=== PATIENT | female | born 1970 | race Caucasian/White ===

== ENCOUNTER 2017-02-21 12:35 | Emergency (ER) | payer BC ==
[~2017-02-21] VITALS: Ht 157.5 cm; Wt 57.5 kg
[2017-02-21 12:53] VITALS: TEMP 36.7; Ht 157.5 cm; Wt 57.5 kg
[2017-02-21] MEDS ORDERED: SODIUM CHLORIDE 0.9% 1000ML 1,000 ML IV STA ×2 (13:25→14:05)
[2017-02-21] MEDS ORDERED: METOCLOPRAMIDE HCL INJ 5 MG/ML 2 ML VIAL IV STA (13:25)
[2017-02-21] MEDS ORDERED: DiphenhydrAMINE HCL 50 MG/ML VIAL IV STA (13:25)
--- NOTE | 2017-02-21 13:32 | EMERGENCY ROOM VISIT NOTE ---
History Report prepared by Tiffanie: Bella Simms Under the Supervision of: Dr. Virgil Kim M.D. First contact with patient: 13:21 Chief Complaint: VERTIGO Stated Complaint: VERTIGO Nursing Triage Summary: pt reports hx of vertigo , has had vertigo about 1 week now but has become worse this AM upon awakening. Patient stated "it gets a little worse when I lay down. " History of Present Illness The patient is a 46 year old female who presents to the Emergency Room with complaints of worsening vertigo for the past 1 week. She experienced an episode this past Wednesday, 5 days [employer], but eventually the symptoms resolved. She admits to a history of vertigo and states this morning upon waking, her symptoms returned and worsened. Laying down and movement make her feel worse, but sitting still provides relief. The patient states "this has been the worse episode I've ever had" and notes she is currently unable to walk because of the dizziness. She tried taking an allergy pill on the recommendation of a friend, but it provided no relief. She notes she has experienced ear issues in the past and this past Wednesday, experienced tinnitus. She denies any recent headache. She has experienced rhinorrhea and also complains of nausea. She has not vomited or experienced any fevers or cough. The patient takes no daily medications and states she has no chronic medical problems. She also denies any neck pain or back pain. Source of History: patient Onset: 1 week [employer] Position: other (global) Timing: worsening Modifying Factors (Worsening): movement, other (Laying down) Modifying Factors (Relieving): rest (sitting still), other (allergy pill) Associated Symptoms: + nausea, No fevers, No headache, No cough, No neck pain, No vomiting, No back pain Review of Systems See HPI for pertinent positives and negatives. A total of ten systems were reviewed and were otherwise negative. Past Medical & Surgical Medical Problems: (1) Vertigo Social History Smoking Status: Never Smoker Alcohol Use: occasionally Drug Use: none Marital Status: Housing Status: lives with family Occupation Status: employed Current/Historical Medications Scheduled Ondasetron Odt (Zofran Odt), 4 MG SL Q6H Scheduled PRN Meclizine Hcl (Meclizine Hcl), 25 MG PO TID PRN for Dizziness Allergies Coded Allergies: No Known Allergies (Unverified , 02/21/17) Physical Exam Vital Signs Date Time Temp Pulse Resp B/P (MAP) Pulse Ox O2 Delivery O2 Flow Rate FiO2 02/21/17 17:55 79 18 145/77 100 02/21/17 15:02 77 16 140/83 98 Room Air 02/21/17 12:53 36.7 77 18 167/85 99 Room Air Physical Exam GENERAL: Awake, alert, appears uncomfortable, in no acute distress. Dry mucous membranes HENT: Normocephalic, atraumatic. Oropharynx unremarkable. EYES: Normal conjunctiva. Sclera non-icteric. Unilateral nystagmus to left, worse with head movements NECK: Supple. No nuchal rigidity. FROM. No JVD. RESPIRATORY: Clear to auscultation. CARDIAC: Regular rate, normal rhythm. Extremities warm and well perfused. Pulses equal. ABDOMEN: Soft, non-distended. No tenderness to palpation. No rebound or guarding. No masses. RECTAL: Deferred. MUSCULOSKELETAL: Chest examination reveals no tenderness. The back is symmetrical on inspection without obvious abnormality. There is no CVA tenderness to palpation. No joint edema. LOWER EXTREMITIES: Calves are equal size bilaterally and non-tender. No edema. No discoloration. NEURO: Neuro grossly intact, normal cerebellar function, finger to nose, alternating palms, heel to lewis. Normal sensorium. No sensory or motor deficits noted. SKIN: No rash or jaundice noted. Medical Decision & Procedures Laboratory Results 02/21/17 13:40 Red Blood Count 4.89, Mean Corpuscular Volume 87.3, Mean Corpuscular Hemoglobin 29.0, Mean Corpuscular Hemoglobin Concent 33.3, Mean Platelet Volume 9.7, Neutrophils (%) (Auto) 66.0, Lymphocytes (%) (Auto) 25.2, Monocytes (%) (Auto) 6.2, Eosinophils (%) (Auto) 1.9, Basophils (%) (Auto) 0.6, Neutrophils # (Auto) 5.28, Lymphocytes # (Auto) 2.02, Monocytes # (Auto) 0.50, Eosinophils # (Auto) 0.15, Basophils # (Auto) 0.05 02/21/17 13:40 Test 02/21/17 13:40 White Blood Count 8.01 K/uL (4.8-10.8) Red Blood Count 4.89 M/uL (4.2-5.4) Hemoglobin 14.2 g/dL (12.0-16.0) Hematocrit 42.7 % (37-47) Mean Corpuscular Volume 87.3 fL (80-100) Mean Corpuscular Hemoglobin 29.0 pg (25-34) Mean Corpuscular Hemoglobin Concent 33.3 g/dl (32-36) Platelet Count 282 K/uL (130-400) Mean Platelet Volume 9.7 fL (7.4-10.4) Neutrophils (%) (Auto) 66.0 % Lymphocytes (%) (Auto) 25.2 % Monocytes (%) (Auto) 6.2 % Eosinophils (%) (Auto) 1.9 % Basophils (%) (Auto) 0.6 % Neutrophils # (Auto) 5.28 K/uL (1.4-6.5) Lymphocytes # (Auto) 2.02 K/uL (1.2-3.4) Monocytes # (Auto) 0.50 K/uL (0.11-0.59) Eosinophils # (Auto) 0.15 K/uL (0-0.5) Basophils # (Auto) 0.05 K/uL (0-0.2) RDW Standard Deviation 42.9 fL (36.4-46.3) RDW Coefficient of Variation 13.5 % (11.5-14.5) Immature Granulocyte % (Auto) 0.1 % Immature Granulocyte # (Auto) 0.01 K/uL (0.00-0.02) Anion Gap 6.0 mmol/L (3-11) Est Creatinine Clear Calc Drug Dose 85.0 ml/min Estimated GFR () 122.3 Estimated GFR (Non- 105.5 BUN/Creatinine Ratio 17.2 (10-20) Calcium Level 9.5 mg/dl (8.5-10.1) Human Chorionic Gonadotropin, Qual NEG (NEG) Laboratory results reviewed by me Medications Administered Medications (Trade) Dose Ordered Sig/Nicol Route Start Time Stop Time Status Last Admin Dose Admin Sodium Chloride 1,000 ml @ 999 mls/hr Q1H1M STAT IV 02/21/17 13:25 02/21/17 14:25 DC 02/21/17 14:00 999 MLS/HR Metoclopramide HCl (Reglan Inj) 10 mg NOW STAT IV 02/21/17 13:25 02/21/17 13:33 DC 02/21/17 14:00 10 MG Diphenhydramine HCl (Benadryl Inj) 25 mg NOW STAT IV 02/21/17 13:25 02/21/17 13:33 DC 02/21/17 14:00 25 MG Sodium Chloride 1,000 ml @ 999 mls/hr Q1H1M STAT IV 02/21/17 14:05 02/21/17 15:05 DC 02/21/17 14:05 999 MLS/HR Meclizine HCl (Antivert 25MG Home Pack) 1 homepack UD ONCE PO 02/21/17 17:15 02/21/17 17:16 DC 02/21/17 17:55 1 HOMEPACK Meclizine HCl (Antivert Tab) 25 mg NOW STAT PO 02/21/17 17:02 02/21/17 17:03 DC 02/21/17 17:54 25 MG ECG Indication: weakness Rate (beats per minute): 64 Rhythm: sinus rhythm Findings: no acute ischemic change, other (Normal axis, premature supraventricular complex) ED Course 1324: The patient was evaluated in room B6. A complete history and physical exam was performed. 1325: Benadryl Inj 25mg Iv, Reglan Inj 10mg Iv, Sodium Chloride 1000 ml @ 999 mls/hr IV 1405: Sodium Chloride 1000 ml @ 999 mls/hr IV 1702: Antivert Tab 25mg PO 1702: I reevaluated and updated the patient. She feels better. I discussed her results and discharge instructions and she verbalized complete understanding and agreement. 1715: Antivert 25MG Home Pack 1 homepack PO Medical Decision I reviewed the patient's past medical history, medications, and the nursing notes as described above. The patient's presentation and history were concerning for peripheral vertigo, BPV, labyrinthitis, central vertigo, dehydration, and electrolyte balance The patient is a 38-year-old woman with a past medical history of peripheral vertigo that is responsive to [place] manuvers presents to the emergency department with intermittent vertigo for the past week per history of present illness. On arrival the patient appears uncomfortable but in no acute distress. Unilateral nystagmus to the left on exam. Cerebellar is intact with finger to nose alternating palms, [id number]. Reproducible symptoms with modified [place]- Hallpike. Symptoms most consistent with peripheral vertigo given the intermittent nature of her otherwise normal neuro exam. Labs unremarkable. Symptoms significantly improved with IV fluids Reglan and Benadryl. She feels improved to go home and will follow up with her PCP. Findings and plan for follow-up reviewed with patient. Patient agreeable and d/c'd per discharge instructions. Medication Reconcilliation Current Medication List: was personally reviewed by me Blood Pressure Screening Patient's blood pressure: Elevated blood pressure Blood pressure disposition: Elevated BP felt to be situational Impression Primary Impression: Vertigo Scribe Attestation The scribe's documentation has been prepared under my direction and personally reviewed by me in its entirety. I confirm that the note above accurately reflects all work, treatment, procedures, and medical decision making performed by me. Departure Information Dispostion Home / Self-Care Prescriptions Ondasetron Odt (ZOFRAN ODT) 4 Mg Tab 4 MG SL Q6H for Nausea, #6 TAB Prov: Virgil Kim M.D. 02/21/17 Meclizine Hcl (MECLIZINE HCL) 25 Mg Tab 25 MG PO TID Y for Dizziness, #21 TAB Prov: Virgil Kim M.D. 02/21/17 Referrals Sybil Armas D.O. (PCP) Patient Instructions ED BPV Vertigo, ED Vertigo Unspecified, [facility] Additional Instructions Please follow up with your primary care physician in the next 1-3 days for re- evaluation. Your symptoms are consistent with peripheral vertigo. Otherwise, your exam, EKG, and lab results did not show signs of an emergent condition at this time. Take meclizine as needed for vertigo. Zofran as needed for nausea. Drink plenty of fluids to ensure hydration. Return to the emergency department for worsening symptoms as described in the accompanying instructions.
[2017-02-21 14:02] LABS: BASO % 0.6 %; BASO ABS # 0.05 K/uL (0-0.2); COMPLETE YES; EOS % 1.9 %; HEMATOCRIT 42.7 % (37-47); IG% 0.1 %; LYMPH % 25.2 %; LYMPH ABS # 2.02 K/uL (1.2-3.4); MEAN CELL VOLUME 87.3 fL (80-100); MEAN CORPUSCULAR HGB CONC 33.3 g/dl (32-36); MEAN PLATELET VOLUME 9.7 fL (7.4-10.4); MONO % 6.2 %; PLATELET COUNT 282 K/uL (130-400); RED BLOOD COUNT 4.89 M/uL (4.2-5.4); WHITE BLOOD COUNT 8.01 K/uL (4.8-10.8)
[2017-02-21 14:28] LABS: BUN/CREATININE RATIO 17.2 (10-20); CALCIUM 9.5 mg/dl (8.5-10.1); CREATININE 0.64 mg/dl (0.60-1.20); POTASSIUM 4.1 mmol/L (3.5-5.1)
[2017-02-21 14:29] LABS: PREG INTERNAL NEGATIVE QC NEG CLEAR BACKGROUND; PREG INTERNAL POSITIVE QC POS CONTROL LINE
[2017-02-21] MEDS ORDERED: MECLIZINE HCL 25 MG TAB PO STA (17:02)
[2017-02-21] MEDS ORDERED: ONDA4TAB10 SL (17:04)
[2017-02-21] MEDS ORDERED: MECL1TAB42 PO (17:04)
[2017-02-21] MEDS ORDERED: MECLIZINE HCL 25MG HOME PACK PO ONE (17:15)
[2017-02-21 17:55] VITALS: BP 145/77; PULSE 79; O2SAT 100
== END 2017-02-21 17:56 | disposition home or self-care (01) ==
LOC: C.EDB 12:36
DX: R42 Dizziness and giddiness (principal)